=== PATIENT | male | born 1980 | race African-American/Black ===

== ENCOUNTER 2017-10-04 10:04 | Emergency (ER) | payer BC, OTHER ==
--- OUTSIDE RECORDS SUMMARY | 2017-10-04 10:06 | XMS REPORT ---
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
--- OUTSIDE RECORDS SUMMARY | 2017-10-04 10:06 | XMS REPORT ---
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
[2017-10-04 10:56] LABS: Absolute Lymphocytes (CBC) 2.1 K/uL (0.7-4.9); Absolute Monocytes 0.6 K/uL (0.1-1.3); Absolute Neutrophil 4.4 K/uL (1.8-8.0); Basophils % 0.5 % (0-1.3); Eosinophils % 3.3 % (0-4.4); Hematocrit 40.2 % (39.6-49.0); Lymphocytes % 28.6 % (15.3-44.8); MCH 27.8 pg (27.0-35.0); MCV 84.2 fL (80-100); MPV 9.3 fL (7.6-11.3); RBC Red Blood Cell Count 4.77 M/uL (4.33-5.43)
[2017-10-04 11:06] LABS: Potassium 3.8 mmol/L (3.5-5.1); Protime INR 1.03
--- NOTE | 2017-10-04 11:28 | ER ---
Nurse's Notes [facility] Name: Enrique Padilla Age: 36 yrs Sex: Male : 1980 Arrival Date: 10/04/2017 Time: 10:09 Bed 30 Private MD: Adriel Mccormack Diagnosis: Dermatitis, unspecified;Essential (primary) hypertension Presentation: 10/04 10:12 Presenting complaint: Patient states: "water blister" to RLE on calf, "hive" on right sv thigh stated Wednesday. Pt reports itching. Transition of care: patient was not received from another setting of care. Onset of symptoms was October 02, 2017. Care prior to arrival: None. 10:12 Method Of Arrival: Ambulatory sv 10:12 Acuity: TANESHA 3 sv 11:46 Risk Assessment: Do you want to hurt yourself or someone else? Patient reports no mb3 desire to harm self or others. Initial Sepsis Screen: Does the patient meet any 2 criteria? No. Patient's initial sepsis screen is negative. Does the patient have a suspected source of infection? No. Patient's initial sepsis screen is negative. Historical: - Allergies: 10:19 No Known Allergies; sv - Home Meds: 10:19 None [Active]; sv - PMHx: 10:19 Anxiety; Hypertension; sv - PSHx: 10:19 None; sv - Immunization history:: Adult Immunizations up to date. - Social history:: Smoking status: Patient/guardian denies using tobacco. - Ebola Screening: : No symptoms or risks identified at this time. Screenin:50 Abuse screen: Denies threats or abuse. Nutritional screening: No deficits noted. mb3 Tuberculosis screening: No symptoms or risk factors identified. Fall Risk None identified. Assessment: 10:48 General: Appears in no apparent distress. comfortable, Behavior is cooperative, mb3 appropriate for age, anxious. Pain: Complains of pain in right leg and left leg. Neuro: No deficits noted. Level of Consciousness is awake, alert, obeys commands, Oriented to person, place, time, situation, Appropriate for age. Cardiovascular: Denies chest pain, Heart tones present Capillary refill < 3 seconds Patient's skin is warm and dry. Pulses are all present. Respiratory: Airway is patent Respiratory effort is even, unlabored, Respiratory pattern is regular, symmetrical, Breath sounds are clear bilaterally. GI: Abdomen is flat, Bowel sounds present X 4 quads. Abd is soft and non tender. : No deficits noted. No signs and/or symptoms were reported regarding the genitourinary system. Derm: blistering to lower inside of right leg, also to upper right leg on outside of leg. Vital Signs: 10:12 BP 187 / 111; Pulse 82; Resp 20; Temp 97.8; Pulse Ox 98% ; Weight 181.44 kg; Height 6 sv ft. 11 in. (210.82 cm); Pain 0/10; 11:18 BP 148 / 79; Pulse 73; Resp 20; Pulse Ox 99% ; mb3 11:44 BP 122 / 95; Pulse 73; Resp 18; Pulse Ox 98% on R/A; mb3 10:12 Body Mass Index 40.82 (181.44 kg, 210.82 cm) sv ED Course: 10:09 Patient arrived in ED. sb2 10:10 Adriel Mccormack DO is Private Physician. sb2 10:12 Arm band placed on right wrist. Patient placed in an exam room, on a stretcher. sv 10:13 Vic Riley MD is Attending Physician. gs 10:19 Triage completed. sv 10:31 Nasir Nieto RN is Primary Nurse. mb3 10:37 Initial lab(s) drawn, by me, sent to lab. Inserted saline lock: 22 gauge in left jb1 antecubital area, using aseptic technique. Blood collected. 11:45 No provider procedures requiring assistance completed. IV discontinued, intact, mb3 bleeding controlled, No redness/swelling at site. Pressure dressing applied. 11:46 Patient has correct armband on for positive identification. mb3 Administered Medications: No medications were administered Outcome: 11:27 Discharge ordered by . gs 11:45 Discharged to home ambulatory. mb3 11:45 Condition: stable 11:45 Discharge instructions given to patient, Instructed on discharge instructions, follow up and referral plans. medication usage, Demonstrated understanding of instructions, follow-up care, medications, Prescriptions given X 2. 11:46 Patient left the ED. mb3 Signatures: Fredrick Sandhu jb1 Vika Ziegler RN RN Vic Riley MD MD Sravani Payton sb2 Nasir Nieto RN RN mb3 Corrections: (The following items were deleted from the chart) 10:19 10:12 Acuity: TANESHA 4 sv sv
--- NOTE | 2017-10-04 11:28 | EDPHYS ---
Physician Documentation [facility] Name: Enrique Padilla Age: 36 yrs Sex: Male : 1980 Arrival Date: 10/04/2017 Time: 10:09 Bed 30 Private MD: [facility] ED Physician Vic Riley HPI: 10/04 11:22 This 36 yrs old Black Male presents to ER via Ambulatory with complaints of Sores On gs Leg. 11:22 The patient's rash thought to be caused by an unknown cause. The rash is located on the gs lateral aspect of right thigh. The rash can be described as macular, ecchymotic. Onset: The symptoms/episode began/occurred 3 day(s) ago. Associated signs and symptoms: Pertinent negatives: fever. Associated signs and symptoms: Pertinent positives: itching, Pertinent negatives: swelling of lips. Severity of symptoms: At their worst the symptoms were mild in the emergency department the symptoms are unchanged. The patient has experienced a previous episode. Historical: - Allergies: 10:19 No Known Allergies; sv - Home Meds: 10:19 None [Active]; sv - PMHx: 10:19 Anxiety; Hypertension; sv - PSHx: 10:19 None; sv - Immunization history:: Adult Immunizations up to date. - Social history:: Smoking status: Patient/guardian denies using tobacco. - Ebola Screening: : No symptoms or risks identified at this time. ROS: 11:22 All other systems are negative. gs Exam: 11:22 Head/Face: Normocephalic, atraumatic. ENT: Nares patent. No nasal discharge, no gs septal abnormalities noted. Tympanic membranes are normal and external auditory canals are clear. Oropharynx with no redness, swelling, or masses, exudates, or evidence of obstruction, uvula midline. Mucous membranes moist. Chest/axilla: Normal chest wall appearance and motion. Nontender with no deformity. No lesions are appreciated. Cardiovascular: Regular rate and rhythm with a normal S1 and S2. No gallops, murmurs, or rubs. Normal PMI, no JVD. No pulse deficits. Respiratory: Lungs have equal breath sounds bilaterally, clear to auscultation and percussion. No rales, rhonchi or wheezes noted. No increased work of breathing, no retractions or nasal flaring. Abdomen/GI: Soft, non-tender, with normal bowel sounds. No distension or tympany. No guarding or rebound. No evidence of tenderness throughout. Back: No spinal tenderness. No costovertebral tenderness. Full range of motion. 11:22 Constitutional: The patient appears alert, awake. 11:22 Musculoskeletal/extremity: Pulses: are normal with no appreciated deficits. 11:22 Skin: ecchymotic macules 3x5cm on r lateral thigh. pedal edema to calf bullous x 1 notes. Vital Signs: 10:12 BP 187 / 111; Pulse 82; Resp 20; Temp 97.8; Pulse Ox 98% ; Weight 181.44 kg; Height 6 sv ft. 11 in. (210.82 cm); Pain 0/10; 11:18 BP 148 / 79; Pulse 73; Resp 20; Pulse Ox 99% ; mb3 11:44 BP 122 / 95; Pulse 73; Resp 18; Pulse Ox 98% on R/A; mb3 10:12 Body Mass Index 40.82 (181.44 kg, 210.82 cm) sv MDM: 10:27 Patient medically screened. 11:22 Differential diagnosis: allergic reaction, pupura. Data reviewed: vital signs, nurses gs notes. Response to treatment: There is no appreciated change of the patient's symptoms at this time, and as a result, I will discharge patient. 10/04 10:27 Order name: CBC with Diff; Complete Time: 11:21 10/04 10:27 Order name: Basic Metabolic Panel; Complete Time: 11:21 10/04 10:27 Order name: Protime (+inr); Complete Time: 11:21 Administered Medications: No medications were administered Disposition: 10/04/17 11:27 Discharged to Home. Impression: Dermatitis, unspecified, Essential (primary) hypertension. - Condition is Stable. - Discharge Instructions: Hypertension, Rash, Managing Your High Blood Pressure. - Prescriptions for Prednisone 20 mg Oral Tablet - take 1 tablet by ORAL route once daily for 5 days; 5 tablet. Triamterene- Hydrochlorothiazid 37.5-25 mg Oral Tablet - take 1 tablet by ORAL route once daily; 15 tablet. - Medication Reconciliation Form, Thank You Letter, Antibiotic Education, Prescription Opioid Use form. - Follow up: Private Physician; When: 1 - 2 days; Reason: Re-evaluation by your physician. Signatures: Dispatcher [employer] Vika Butler RN RN Vic Riley MD MD Nasir Nieto RN RN mb3 Corrections: (The following items were deleted from the chart) 11:46 11:27 10/04/2017 11:27 Discharged to Home. Impression: Dermatitis, unspecified; mb3 Essential (primary) hypertension. Condition is Stable. Forms are Medication Reconciliation Form, Thank You Letter, Antibiotic Education, Prescription Opioid Use. Follow up: Private Physician; When: 1 - 2 days; Reason: Re-evaluation by your physician. gs
== END 2017-10-04 11:46 | disposition home or self-care (01) ==
LOC: ER 10:04
DX: L30.9 Dermatitis, unspecified (principal); I10 Essential (primary) hypertension
CPT/HCPCS: 36415; 80048; 85025; 85610; 99283